=== PATIENT | male | born 1970 | race Caucasian/White ===

== ENCOUNTER 2019-09-27 22:05 | Emergency (ER) | payer SELFPAY ==
[~2019-09-27] VITALS: Ht 188 cm; Wt 89.8 kg
--- NOTE | 2019-09-27 23:22 | Emergency Department Note ---
History of Present Illnes History of Present Illness Chief Complaint: Skin Rash or Abscess History of Present Illness This is a 49 year old male . Historian: Patient Arrival Mode: Car Onset (how long ago): day(s) (5) Location: Right axilla Radiation: Reports non-radiation Severity: mild Duration (how long): day(s) Timing of current episode: constant Progression: unchanged Chronicity: new Context: Denies recent illness Relieving factors: none Exacerbating factors: none Associated symptoms: Reports denies other symptoms Treatments prior to arrival: none Past Medical/Family History Physician Review I have reviewed the patient's past medical and family history. Any updates have been documented here. Past Medical History Recent Fever: No Clinical Suspicion of Infectio: No New/Unexplained Change in Ment: No Social History Smoking Cessation: Never Smoker Alcohol Use: None Any Illegal Drug Use: No Review of Systems Review of Systems Constitutional: Reports no symptoms; Denies fever EENTM: Reports no symptoms Cardiovascular: Reports no symptoms Respiratory: Reports no symptoms Gastrointestinal: Reports no symptoms Genitourinary: Reports no symptoms Musculoskeletal: Reports no symptoms Integumentary: Reports rash Neurological: Reports no symptoms Psychological: Reports no symptoms Endocrine: Reports no symptoms Hematological/Lymphatic: Reports no symptoms Physical Exam Related Data Allergies: Uncoded Allergies: PENECILLIN (Allergy, Unknown, 09/27/19) Triage Vital Signs Vital Signs Date Time Temp Pulse Resp B/P (MAP) Pulse Ox O2 Delivery O2 Flow Rate FiO2 09/27/19 23:20 97.6 81 16 171/112 98 Room Air Vital signs reviewed: Yes Physical Exam CONSTITUTIONAL Constitutional: Present well-developed, Present well-nourished HENT HENT: Present normocephalic, Present atraumatic, Present oropharynx clear/moist, Present nose normal HENT L/R: Present left ext ear normal, Present right ext ear normal EYES Eyes: Reports PERRL, Reports conjunctivae normal NECK Neck: Present ROM normal PULMONARY Pulmonary: Present effort normal, Present breath sounds normal CARDIOVASCULAR Cardiovascular: Present regular rhythm, Present heart sounds normal, Present capillary refill normal, Present normal rate GASTROINTESTINAL Abdominal: Present soft, Present nontender, Present bowel sounds normal GENITOURINARY Genitourinary: Present exam deferred SKIN Skin: Present other (abscess R axilla 1) 6 x 6 cm 2) 3 x 3 cm) MUSCULOSKELETAL Musculoskeletal: Present ROM normal NEUROLOGICAL Neurological: Present alert, Present oriented x 3, Present no gross motor or sensory deficits PSYCHOLOGICAL Psychological: Present mood/affect normal, Present judgement normal Assessment & Plan Medical Decision Making MDM 49 yom with boil in R arm : Diff Dx : abscess, staph infection, hydradenitis suppuritiva. Rx doxycycline Assessment & Plan Final Impression: (1) Abscess of right axilla Depart Disposition: HOME, SELF-CARE Last Vital Signs Date Time Temp Pulse Resp B/P (MAP) Pulse Ox O2 Delivery O2 Flow Rate FiO2 09/27/19 23:20 97.6 81 16 171/112 98 Room Air DALE IGLESIAS Sep 27, 2019 23:22
== END 2019-09-27 23:34 | disposition home or self-care (01) ==
LOC: ER 23:25
DX: L02.411 Cutaneous abscess of right axilla (principal); F17.210 Nicotine dependence, cigarettes, uncomplicated
CPT/HCPCS: 99282

== ENCOUNTER 2019-11-23 14:18 | Emergency (ER) | payer SELFPAY ==
[~2019-11-23] VITALS: Ht 188 cm; Wt 87.1 kg
[2019-11-23] MEDS ORDERED: CHLORHEXIDINE473 ML SS (15:08)
[2019-11-23] MEDS ORDERED: ULTRAM50 MG PO (15:08)
[2019-11-23] MEDS ORDERED: CLINDAMYCIN HC300 MG PO (15:08)
[2019-11-23] MEDS ORDERED: HYDROCODONE/APAP 10MG-325MG TAB PO ONE (15:15)
[2019-11-23] MEDS ORDERED: LIDOCAINE VISC 2% SOLN 15 ML UDC PO ONE (15:15)
--- NOTE | 2019-11-23 15:16 | Emergency Department Note ---
History of Present Illnes History of Present Illness Chief Complaint: General Medicine Complaints History of Present Illness This is a 49 year old male arrived to the ED with complaints of right sided face swelling- pt states he hasn't followed up with . Chief Complaint Comment PATIENT IN FROM HOME WITH COMPLAINTS OF DENTAL INFECTION AND FACIAL SWELLING STARTING YESTERDAY; STATES WAS SCHEDULED TO HAVE SOME TEETH REMOVED IN MAY BUT WAS POSTPONED BECAUSE OF COVID. PATIENT WITH FACIAL SWELLING AND PAIN Historian: Patient Arrival Mode: Car Onset (how long ago): week(s) Radiation: Reports non-radiation Duration (how long): week(s) Timing of current episode: constant Progression: unchanged Exacerbating factors: none Past Medical/Family History Physician Review I have reviewed the patient's past medical and family history. Any updates have been documented here. 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 ANKLE BILATERAL LEG Social History Smoking Cessation: Current every day smoker Counseling Performed: No Alcohol Use: Occasional Any Illegal Drug Use: No Physically hurt or threatened: No Other Any Pre-Existing Lines (PICC,: No Review of Systems Review of Systems Constitutional: Reports no symptoms EENTM: Reports no symptoms, Reports other (dental decay/caries ) Cardiovascular: Reports no symptoms Respiratory: Reports no symptoms Gastrointestinal: Reports no symptoms Genitourinary: Reports no symptoms Musculoskeletal: Reports no symptoms Integumentary: Reports no symptoms Neurological: Reports no symptoms Psychological: Reports no symptoms Endocrine: Reports no symptoms Hematological/Lymphatic: Reports no symptoms Physical Exam Related Data Allergies: Coded Allergies: Penicillins (Verified Allergy, Unknown, 11/23/19) Triage Vital Signs Vital Signs Date Time Temp Pulse Resp B/P (MAP) Pulse Ox O2 Delivery O2 Flow Rate FiO2 11/23/19 14:40 97.0 88 20 171/112 100 Room Air Vital signs reviewed: Yes Physical Exam CONSTITUTIONAL Constitutional: Present well-developed, Present well-nourished HENT HENT: Present normocephalic, Present atraumatic, Present oropharynx clear/moist, Present nose normal, Present dental caries (poor dentition, airway intact, no sublingual swelling, no drooling, stridor, no trismus ), Present other HENT L/R: Present left ext ear normal, Present right ext ear normal EYES Eyes: Reports PERRL, Reports conjunctivae normal NECK Neck: Present ROM normal PULMONARY Pulmonary: Present effort normal, Present breath sounds normal CARDIOVASCULAR Cardiovascular: Present regular rhythm, Present heart sounds normal, Present capillary refill normal, Present normal rate GASTROINTESTINAL Abdominal: Present soft, Present nontender, Present bowel sounds normal GENITOURINARY Genitourinary: Present exam deferred SKIN Skin: Present warm, Present dry MUSCULOSKELETAL Musculoskeletal: Present ROM normal NEUROLOGICAL Neurological: Present alert, Present oriented x 3, Present no gross motor or sensory deficits PSYCHOLOGICAL Psychological: Present mood/affect normal, Present judgement normal Results Laboratory Lab results reviewed: Yes Assessment & Plan Medical Decision Making MDM 49 M arrived to the ED for facial swelling, significant dental caries- no concerns of yung's angina or other deep space infection. Pt stable for disc harge with out pt dental follow up. Assessment & Plan Final Impression: (1) Dental infection Depart Disposition: HOME, SELF-CARE Last Vital Signs Date Time Temp Pulse Resp B/P (MAP) Pulse Ox O2 Delivery O2 Flow Rate FiO2 11/23/19 14:40 97.0 88 20 171/112 100 Room Air Home Meds Active Scripts Chlorhexidine Gluconate (CHLORHEXIDINE GLUCONATE) 473 Ml Mouthwash, 5 ML SS TID, #120 Prov:SYED MEEK DO 11/23/19 Tramadol Hcl (ULTRAM) 50 Mg Tablet, 50 MG PO Q6HR PRN for Mild Pain (1-3) or Fever>100.8, #14 TAB Prov:SYED MEEK DO 11/23/19 Clindamycin Hcl (CLINDAMYCIN HCL) 300 Mg Capsule, 300 MG PO Q6HR, #40 Prov:SYED MEEK DO 11/23/19 Medications in the ED Acetaminophen/ Hydrocodone Bitart 1 ea ONCE ONCE PO Last administered on 11/23/19at 15:11; Admin Dose 1 EA; Start 11/23/19 at 15:15; Stop 11/23/19 at 15:16 Lidocaine HCl 5 ml ONCE ONCE PO Last administered on 11/23/19at 15:11; Admin Dose 5 ML; Start 11/23/19 at 15:15; Stop 11/23/19 at 15:16 SYED MEEK DO Nov 23, 2019 15:16
--- OUTSIDE RECORDS SUMMARY | 2019-11-23 15:33 | XMS REPORT | Continuity of Care Document ---
Author Author [facility] t Organization [facility] Address [address] [place] [address] Phone Unavailable Care Team Providers Care Apiculturist Name Role Phone NO, PCP PCP Unavailable Problems Condition Name Condition Details Condition Category Status Onset Date Resolution Date Last Treatment Date Treating Clinician Comments Source Abscess of right axilla Problem Active [facility] Allergies, Adverse Reactions, Alerts Allergy Name Allergy Type Status Severity Reaction(s) Onset Date Inacti ve Date Treating Clinician Comments Source PENECILLIN Allergy to substance Active 2019-09-27 00:00:00 [facility] Social History Social Habit Start Date Stop Date Quantity Comments Source Sex Assigned At 1970 00:00:00 1970 00:00:00 Male [facility] Medications This patient has no known medications. Vital Signs Vital Name Observation Time Observation Value Comments Source Weight 2019-09-27 23:20:00 198 [lb_av] [facility] BMI (Body Mass Index) 2019-09-27 23:20:00 25.4 kg/m2 [facility] Procedures This patient has no known procedures. Plan of Care Planned Activity Planned Date Details Comments Source Instructions Cocaine Abuse [facility] Instructions Skin Abscess - Antibiotics C HI [facility] Encounters Start Date/Time End Date/Time Encounter Type Admission Type Att[facility] Care Department Encounter ID Source 2019-09-27 23:25:00 2019-09-27 23:34:00 Departed Emergency Room [facility] [id number] [facility] Results This patient has no known results.
== END 2019-11-23 15:59 | disposition home or self-care (01) ==
LOC: ER 15:10
DX: K08.89 Other specified disorders of teeth and supporting structures (principal); K04.7 Periapical abscess without sinus; I10 Essential (primary) hypertension; F17.210 Nicotine dependence, cigarettes, uncomplicated
CPT/HCPCS: 99283

== ENCOUNTER 2019-11-26 12:51 | Emergency (ER) ==
[~2019-11-26] VITALS: Ht 188 cm; Wt 89.8 kg
[~2019-11-26 12:51] MED LIST: CHLORHEXIDINE473 ML SS; CLINDAMYCIN HC300 MG PO; ULTRAM50 MG PO
[2019-11-26] MEDS ORDERED: HYDROCODONE/APAP 7.5MG-325MG 1 EA TAB PO STA (13:25)
[2019-11-26] MEDS ORDERED: SODIUM CHLORIDE 0.9% 1000ML 1,000 ML IV STA (13:25)
[2019-11-26] MEDS ORDERED: VANCOMYCIN 1GM/NS 250 ML 250 ML IV ONE (13:30)
--- OUTSIDE RECORDS SUMMARY | 2019-11-26 13:39 | XMS REPORT | Continuity of Care Document ---
Author Author [facility] t Organization [facility] Address [address] [place] [address] Phone Unavailable Care Team Providers Care Professional Security Officer Name Role Phone NO, PCP PCP Unavailable Problems Condition Name Condition Details Condition Category Status Onset Date Resolution Date Last Treatment Date Treating Clinician Comments Source Abscess of right axilla Problem Active [facility] Allergies, Adverse Reactions, Alerts Allergy Name Allergy Type Status Severity Reaction(s) Onset Date Inacti ve Date Treating Clinician Comments Source Penicillin Allergy to substance Active 2019-11-23 00:00:00 [facility] Social History Social Habit Start Date Stop Date Quantity Comments Source Sex Assigned At 1970 00:00[birth year]00 1970 00:00:[address] [facility] Medications Ordered Medication Name Filled Medication Name Start Date Stop Da te Current Medication? Ordering Clinician Indication Dosage Frequency Signature (SIG) Comments Components Source Chlorhexidine Gluconate Chlorhexidine Gluconate 2019-11-23 15:08:00 Yes [address] [facility] Clindamycin Hcl Clindamycin Hcl 2019-11-23 15:08:00 Yes 300 Every 6 Hours [facility] Tramadol Hcl (Ultram) 50 Mg TABLET Tramadol Hcl (Ultram) 50 Mg TABLET 2019-11-23 15:08:00 Yes 50 Every 6 Ho urs as needed for Mild Pain (1-3) Or Fever>100.8 [facility] Vital Signs Vital Name Observation Time Observation Value Comments Source Weight 2019-11-23 14:40:00 192 [lb_av] [facility] BMI (Body Mass Index) 2019-11-23 14:40:00 24.7 kg/m2 [facility] Weight 2019-09-27 23:20:00 198 [lb_av] [facility] BMI (Body Mass Index) 2019-09-27 23:20:00 25.4 kg/m2 [facility] Procedures This patient has no known procedures. Plan of Care Planned Activity Planned Date Details Comments Source Instructions Dental Caries (Cavities) [facility] Encounters Start Date/Time End Date/Time Encounter Type Admission Type Attendi [facility] Care Department Encounter ID Source 2019-11-23 15:10:00 2019-11-23 15:59:00 Departed Emergency Room [facility] [id number] [facility] 2019-09-27 23:25:00 2019-09-27 23:34:00 Departed Emergency Room [facility] [id number] [facility] Results This patient has no known results.
[2019-11-26 14:13] LABS: BASOPHILS # (AUTO) 0.1 (0.0-0.1); BASOPHILS % 0.9 % (0.0-1.0); EOSINOPHILS # (AUTO) 0.3 (0.0-0.4); EOSINOPHILS % 3.1 % (0.0-6.0); HEMATOCRIT 48.9 % (38.2-49.6); LYMPHOCYTES # (AUTO) 1.8 (1.0-3.2); LYMPHOCYTES % 18.2 % (18.0-39.1); MEAN CORPUSCULAR HEMOGLOBIN 30.2 pg (28-32); MEAN CORPUSCULAR HGB CONC 32.7 g/dL (31-35); MEAN CORPUSCULAR VOLUME 92.4 fL (81-99); MONOCYTES # (AUTO) 0.9 (0.2-0.8); MONOCYTES % 8.7 % (4.4-11.3); NEUTROPHILS # (AUTO) 6.7 (2.1-6.9); NEUTROPHILS % 68.5 % (38.7-80.0); PLATELET COUNT 362 x10e3/uL (140-360); RED BLOOD COUNT 5.29 x10e6/uL (4.3-5.7); RED CELL DISTRIBUTION WIDTH 12.5 % (11.7-14.4)
[2019-11-26 14:40] LABS: ALANINE AMINOTRANSFERASE 42 IU/L (0-55); ALBUMIN 3.3 g/dL (3.5-5.0); ALBUMIN/GLOBULIN RATIO 0.8 (0.8-2.0); ALKALINE PHOSPHATASE 78 IU/L (40-150); ANION GAP 17.8 mmol/L (8-16); BLOOD UREA NITROGEN 12 mg/dL (7-26); BUN/CREATININE RATIO 10 (6-25); CALCIUM 9.6 mg/dL (8.4-10.2); CARBON DIOXIDE 22 mmol/L (22-29); CHLORIDE 104 mmol/L (98-107); CREATINE KINASE 37 IU/L (30-200); CREATININE, SERUM 1.24 mg/dL (0.72-1.25); EST GLOMERULAR FILTRATION RATE > 60 ML/MIN (60-); GLUCOSE 110 mg/dL (74-118); POTASSIUM 3.8 mmol/L (3.5-5.1); SODIUM 140 mmol/L (136-145)
[2019-11-26] MEDS ORDERED: KETOROLAC TROMETHAMINE 60 MG/2 ML VIAL IM ONE (15:45)
[2019-11-26] MEDS ORDERED: TRIMETHOPRIM/SULFAMETHOXAZOLE 160-800 MG TAB PO ONE (15:45)
[2019-11-26] MEDS ORDERED: KETOROLAC TROMETHAMINE 30 MG/ML VIAL IV STA (15:53)
--- NOTE | 2019-11-26 16:26 | Emergency Department Note ---
History of Present Illnes History of Present Illness Chief Complaint: Eye, Ear, Nose, Throat, Dental History of Present Illness This is a 49 year old male X 4 DAYS, NAUSEA. PATIENT SEEN HERE 4 DAYS AGO WITH TOOTH INFECTION AND GIVEN CLINDAMYCIN. HE IS BACK TODAY BECAUSE HE SAYS HIS UPPE LIP IS SWOLLEN AND HARD. "I THINK ITS A STAPH INFECTION". 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 Any updates have been documented here. Past Medical History Recent Fever: No Clinical Suspicion of Infectio: No New/Unexplained Change in Ment: No Past Medical History: Hypertension Other Medical History: LEFT KIDNEY REMOVAL Other Surgery: LEFT NEPHRECTOMY 1991 RIGHT ANKLE BILATERAL LEG Social History Smoking Cessation: Never Smoker Counseling Performed: No Alcohol Use: Occasional Any Illegal Drug Use: No TB Exposure/Symptoms: No Physically hurt or threatened: No Family History Family history of heart diseas: No Other Any Pre-Existing Lines (PICC,: No Review of Systems Review of Systems Constitutional: Reports no symptoms EENTM: Reports as per HPI Cardiovascular: Reports no symptoms Respiratory: Reports no symptoms Gastrointestinal: Reports no symptoms Genitourinary: Reports no symptoms Musculoskeletal: Reports no symptoms Integumentary: Reports no symptoms Neurological: Reports no symptoms Psychological: Reports no symptoms Endocrine: Reports no symptoms Hematological/Lymphatic: Reports no symptoms Physical Exam Related Data Allergies: Coded Allergies: Penicillins (Verified Allergy, Unknown, 11/23/19) Triage Vital Signs Vital Signs Date Time Temp Pulse Resp B/P (MAP) Pulse Ox O2 Delivery O2 Flow Rate FiO2 11/26/19 13:19 98.0 106 18 164/122 100 Room Air Vital signs reviewed: Yes Physical Exam CONSTITUTIONAL Constitutional: Present well-developed, Present well-nourished HENT HENT: Present dental caries (WIDESPREAD, TEETH 8 AND 7 LOOSE AND DECAYED, T ERROL), Present other (RIGHT SIDE OF UPPER LIP WITH MILD SWELLING AND ENTRANCE TO RIGHT NARE WITH SMALL PUNCTATE VESICLE - TENDER) HENT L/R: Present left ext ear normal, Present right ext ear normal EYES Eyes: Reports PERRL, Reports conjunctivae normal NECK Neck: Present ROM normal PULMONARY Pulmonary: Present effort normal, Present breath sounds normal CARDIOVASCULAR Cardiovascular: Present regular rhythm, Present heart sounds normal, Present capillary refill normal, Present normal rate GASTROINTESTINAL Abdominal: Present soft, Present nontender, Present bowel sounds normal GENITOURINARY Genitourinary: Present exam deferred SKIN Skin: Present warm, Present dry MUSCULOSKELETAL Musculoskeletal: Present ROM normal NEUROLOGICAL Neurological: Present alert, Present oriented x 3, Present no gross motor or sensory deficits PSYCHOLOGICAL Psychological: Present mood/affect normal, Present judgement normal Results Laboratory Result Diagram: 11/26/19 1300 11/26/19 1300 Laboratory Laboratory Tests Test 11/26/19 13:00 White Blood Count 9.72 x10e3/uL (4.8-10.8) Red Blood Count 5.29 x10e6/uL (4.3-5.7) Hemoglobin 16.0 g/dL (14.0-18.0) Hematocrit 48.9 % (38.2-49.6) Mean Corpuscular Volume 92.4 fL (81-99) Mean Corpuscular Hemoglobin 30.2 pg (28-32) Mean Corpuscular Hemoglobin Concent 32.7 g/dL (31-35) Red Cell Distribution Width 12.5 % (11.7-14.4) Platelet Count 362 x10e3/uL (140-360) Neutrophils (%) (Auto) 68.5 % (38.7-80.0) Lymphocytes (%) (Auto) 18.2 % (18.0-39.1) Monocytes (%) (Auto) 8.7 % (4.4-11.3) Eosinophils (%) (Auto) 3.1 % (0.0-6.0) Basophils (%) (Auto) 0.9 % (0.0-1.0) Neutrophils # (Auto) 6.7 (2.1-6.9) Lymphocytes # (Auto) 1.8 (1.0-3.2) Monocytes # (Auto) 0.9 (0.2-0.8) Eosinophils # (Auto) 0.3 (0.0-0.4) Basophils # (Auto) 0.1 (0.0-0.1) Absolute Immature Granulocyte (auto 0.06 x10e3/uL (0-0.1) Sodium Level 140 mmol/L (136-145) Potassium Level 3.8 mmol/L (3.5-5.1) Chloride Level 104 mmol/L (98-107) Carbon Dioxide Level 22 mmol/L (22-29) Anion Gap 17.8 mmol/L (8-16) Blood Urea Nitrogen 12 mg/dL (7-26) Creatinine 1.24 mg/dL (0.72-1.25) Estimat Glomerular Filtration Rate > 60 ML/MIN (60-) BUN/Creatinine Ratio 10 (6-25) Glucose Level 110 mg/dL (74-118) Calcium Level 9.6 mg/dL (8.4-10.2) Total Bilirubin 0.4 mg/dL (0.2-1.2) Aspartate Amino Transf (AST/SGOT) 35 IU/L (5-34) Alanine Aminotransferase (ALT/SGPT) 42 IU/L (0-55) Alkaline Phosphatase 78 IU/L (40-150) Creatine Kinase 37 IU/L (30-200) Creatine Kinase MB 1.60 ng/mL (0-5.0) Troponin I 0.013 ng/mL (0-0.300) Total Protein 7.4 g/dL (6.5-8.1) Albumin 3.3 g/dL (3.5-5.0) Globulin 4.1 g/dL (2.3-3.5) Albumin/Globulin Ratio 0.8 (0.8-2.0) Lab results reviewed: Yes Assessment & Plan Medical Decision Making MDM TOOTH INFECTION ON CLINDA SEEN HERE 3 DAYS AGO, NOW WITH NASAL VESTIBULITIS - CHECK CBC, CHEM, GIVE ADDITIONAL ABX TO COVER STAPH Reassessment Reassessment CONTINUE CLINDA, ADD BACTRIM DS (PT PCN ALLERGIC), BACTROBAN OINTMENT TO NARES BID, F/U PCP AND DENTIST Assessment & Plan Final Impression: (1) Dental infection (2) Nasal vestibulitis Depart Disposition: HOME, SELF-CARE Last Vital Signs Date Time Temp Pulse Resp B/P (MAP) Pulse Ox O2 Delivery O2 Flow Rate FiO2 11/26/19 15:48 98.3 88 18 154/104 100 Room Air Home Meds Active Scripts Chlorhexidine Gluconate (CHLORHEXIDINE GLUCONATE) 473 Ml Mouthwash, 5 ML SS TID, #120 Prov:SYED MEEK, DO 11/23/19 Tramadol Hcl (ULTRAM) 50 Mg Tablet, 50 MG PO Q6HR PRN for Mild Pain (1-3) or Fever>100.8, #14 TAB Prov:SYED MEEK, DO 11/23/19 Clindamycin Hcl (CLINDAMYCIN HCL) 300 Mg Capsule, 300 MG PO Q6HR, #40 Prov:SYED MEEK, DO 11/23/19 Medications in the ED Sodium Chloride 1,000 ml @ 0 mls/hr Q0M STAT IV ; Start 11/26/19 at 13:25; Stop 11/26/19 at 15:54; Status DC Vancomycin HCl 250 ml @ 166.667 mls/hr NOW ONCE IV ; Start 11/26/19 at 13:30; Stop 11/26/19 at 15:42; Status DC Acetaminophen/ Hydrocodone Bitart 1 ea NOW STAT PO ; Start 11/26/19 at 13:25; Stop 11/26/19 at 15:54; Status DC Trimethoprim/ Sulfamethoxazole 1 ea ONCE ONCE PO Last administered on 11/26/19at 15:57; Admin Dose 1 EA; Start 11/26/19 at 15:45; Stop 11/26/19 at 15:46; Status DC Ketorolac Tromethamine 60 mg ONCE ONCE IM ; Start 11/26/19 at 15:45; Stop 11/26/19 at 15:54; Status DC Ketorolac Tromethamine 30 mg ONCE STAT IV Last administered on 11/26/19at 15:55; Admin Dose 30 MG; Start 11/26/19 at 15:53; Stop 11/26/19 at 16:01; Status DC TONA CALIX MD Nov 26, 2019 16:26
== END 2019-11-26 18:23 | disposition home or self-care (01) ==
LOC: ER 13:00
DX: J34.89 Other specified disorders of nose and nasal sinuses (principal); I10 Essential (primary) hypertension
CPT/HCPCS: 36415; 80053; 82550; 82553; 84484; 85025; 99284